=== PATIENT | female | born 1985 | race Caucasian/White ===

== ENCOUNTER 2017-07-01 19:50 | Emergency (ER) | payer OTHER ==
[~2017-07-01] VITALS: Ht 157.5 cm; Wt 110.0 kg
[2017-07-01 20:22] LABS: HEMATOCRIT 37.7 % (36.0-46.0); MCH 27.1 PG (29.0-34.0); MCHC 32.6 G/DL (30.0-36.0); MEAN PLAT.VOLUME 9.5 uM^3 (9.5-12.4); PLATELET COUNT 347 K/uL (156-360); RBC DIS.WIDTH-CV 13.8 % (11.8-14.6); RBC DIS.WIDTH-SD 42.1 % (39-53); RED BLOOD COUNT 4.54 M/uL (3.80-5.20); WHITE BLOOD COUNT 12.3 K/uL (4.1-10.2)
[2017-07-01 20:30] LABS: CHLORIDE 105 mEq/L (99-109)
[2017-07-01 20:31] LABS: POTASSIUM 4.2 mEq/L (3.7-5.4); SODIUM 138 mEq/L (136-147)
[2017-07-01 20:33] LABS: GLUCOSE 92 mg/dL (70-99)
[2017-07-01 20:34] LABS: ANION GAP 8 MEQ/L (2-14)
[2017-07-01 20:35] LABS: TOTAL BILIRUBIN 0.4 mg/dL (0.0-1.0)
[2017-07-01 20:36] LABS: ALKALINE PHOSPHATASE 101 IU/L (3-129); GFR ESTIMATE (CALCULATED) > 59 mL/min/
[2017-07-01 20:38] LABS: UREA NITROGEN (BUN) 16 mg/dL (9-23)
[2017-07-01 20:40] LABS: LIPASE 18 U/L (1.0-51.0)
[2017-07-01 20:46] LABS: QUANTITATIVE HCG < 4.0 MIU/ML
[2017-07-01 21:02] LABS: ADD MIUA? YES; BILIRUBIN NEGATIVE; BLOOD MODERATE; COLOR YELLOW ((YELLOW)); GLUCOSE (STRIP) NEGATIVE; KETONES 5; LEUKOCYTES SMALL; NITRITE NEGATIVE; PROTEIN (STRIP) 100; SPECIFIC GRAVITY 1.023 (1.000-1.030)
[2017-07-01 21:34] LABS: BACTERIA 1+ /HPF; CASTS NONE SEEN /LPF; CRYSTALS NONE SEEN; EPITHELIAL CELLS 1+ /HPF; MUCUS 3+ /LPF; RED BLOOD CELLS 30-40 /HPF (0-5); UCUL ADDED? YES; WHITE BLOOD CELLS 20-30 /HPF (0-5)
[2017-07-01] MEDS ORDERED: CIPRO500 MG PO (22:10)
[2017-07-01 22:14] VITALS: BP 150/99
== END 2017-07-01 22:14 | disposition home or self-care (01) ==
LOC: EME 19:50
PROVIDERS: Physician Assistant
DX: N39.0 Urinary tract infection, site not specified (principal); M54.9 Dorsalgia, unspecified; F41.9 Anxiety disorder, unspecified; F17.200 Nicotine dependence, unspecified, uncomplicated
CPT/HCPCS: 74176; 80053; 81003; 83690; 84702; 85027; 87086; 99281; 99283